=== PATIENT | male | born 1950 | race Caucasian/White ===

== ENCOUNTER 2017-12-14 09:16 | Emergency (ER) | payer SELFPAY ==
[~2017-12-14] VITALS: Ht 182.9 cm; Wt 92.5 kg
[2017-12-14] MEDS ORDERED: ASPI81CH PO (10:50)
[2017-12-14] MEDS ORDERED: LUBRICANT 0.5-015 ML RIGHTEYE (10:52)
[2017-12-14] MEDS ORDERED: GENTEAL TEARS 015 M1 RIGHTEYE (10:53)
[2017-12-14] MEDS ORDERED: ERYT1OIN BOTHEYES (10:55)
[2017-12-14] MEDS ORDERED: RETAINE HPMC 0.10 ML BOTHEYES (10:56)
[2017-12-14] MEDS ORDERED: LEVSOD100 PO (10:56)
[2017-12-14] MEDS ORDERED: METCAR500 PO (10:57)
[2017-12-14] MEDS ORDERED: HYDCHL25 PO (10:57)
[2017-12-14] MEDS ORDERED: CHOL10002 PO (10:58)
[2017-12-14] MEDS ORDERED: Viagra100 MG PO (10:58)
[2017-12-14] MEDS ORDERED: Fish Oil 10001000 MG PO (10:59)
[2017-12-14] MEDS ORDERED: ACIDOPHILUS1 EAC1 PO (11:00)
[2017-12-14] MEDS ORDERED: Polytrim Eye Dr10 ML RIGHTEYE (11:34)
== END 2017-12-14 11:50 | disposition home or self-care (01) ==
LOC: ER 09:16
DX: S05.01XA Injury of conjunctiva and corneal abrasion without foreign body, right eye, initial encounter (principal); W22.8XXA Striking against or struck by other objects, initial encounter; I10 Essential (primary) hypertension; Z79.899 Other long term (current) drug therapy; Z79.82 Long term (current) use of aspirin
CPT/HCPCS: 99284

== ENCOUNTER 2019-03-25 03:37 | Emergency (ER) | payer OTHER ==
[~2019-03-25] VITALS: Ht 182.9 cm; Wt 92.5 kg
[~2019-03-25 03:37] MED LIST: ACIDOPHILUS1 EAC1 PO; ASPI81CH PO; CHOL10002 PO; ERYT1OIN BOTHEYES; Fish Oil 10001000 MG PO; GENTEAL TEARS 015 M1 RIGHTEYE; HYDCHL25 PO; LEVSOD100 PO; LUBRICANT 0.5-015 ML RIGHTEYE; METCAR500 PO; Polytrim Eye Dr10 ML RIGHTEYE; RETAINE HPMC 0.10 ML BOTHEYES; Viagra100 MG PO
[2019-03-25] MEDS ORDERED: Crestor40 MG PO (04:12)
[2019-03-25] MEDS ORDERED: CLOP75 PO (04:12)
[2019-03-25] MEDS ORDERED: CEPH500 PO (06:30)
== END 2019-03-25 06:52 | disposition home or self-care (01) ==
LOC: ER 03:37
DX: S92.422B Displaced fracture of distal phalanx of left great toe, initial encounter for open fracture (principal); I10 Essential (primary) hypertension; E03.9 Hypothyroidism, unspecified; Z95.2 Presence of prosthetic heart valve; Z79.899 Other long term (current) drug therapy; Z79.01 Long term (current) use of anticoagulants; X58.XXXA Exposure to other specified factors, initial encounter
CPT/HCPCS: 12001; 73660; 99283-25; A9270-GY

== ENCOUNTER 2024-12-16 06:41 | Emergency (ER) | payer OTHER ==
[~2024-12-16] VITALS: Ht 182.9 cm; Wt 78.0 kg
[~2024-12-16 06:41] MED LIST changes: +CEPH500 PO; +CLOP75 PO; +Crestor40 MG PO; +DILT120 PO; +DOCU100 PO; +ERYT.5TO BOTHEYES; +LEVSOD150 PO; +METO25ER PO; +OMEP20ER PO; +Toprol Xl25 MG PO; +XARELTO20 MG PO
[2024-12-16 07:24] LABS: BASOPHILS ABSOLUTE AUTO 0.01 K/mm3 (0.00-0.23); BASOPHILS PERCENT AUTO 0 % (0-2); EOSINOPHILS ABSOLUTE AUTO 0.02 K/mm3 (0.00-0.68); EOSINOPHILS PERCENT AUTO 1 % (0-6); Hematocrit 38.1 % (37.0-53.0); Hemoglobin 12.9 g/dL (13.5-17.5); IMMATURE GRAN ABSOLUTE AUTO 0.00 K/mm3 (0.00-0.10); IMMATURE GRAN PERCENT AUTO 0 % (0-1); LYMPHOCYTES ABSOLUTE AUTO 1.49 K/mm3 (0.84-5.20); LYMPHOCYTES PERCENT AUTO 49 % (21-46); MONOCYTES ABSOLUTE AUTO 0.31 K/mm3 (0.16-1.47); MONOCYTES PERCENT AUTO 10 % (4-13); Mean Corpuscular HGB Conc 33.9 g/dL (31.5-36.5); Mean Corpuscular Volume 94 fL (80-100); NEUTROPHILS ABSOLUTE AUTO 1.24 K/mm3 (1.96-9.15); NEUTROPHILS PERCENT AUTO 40 % (41-73); NRBC ABSOLUTE 0.00 K/mm3 (0.00-0.02); NRBC Auto 0.0 /100 WBC (0.0-0.2); Platelet Count 100 K/mm3 (150-400); RDW Coefficient Variation 14.9 % (11.7-14.2); RDW Standard Deviation 51.3 fL (35.1-46.3)
[2024-12-16] MEDS ORDERED: JARDIANCE10 MG PO (07:40)
[2024-12-16 07:41] LABS: Alanine Aminotransfer (ALT/SGP 21.0 U/L (12-78); Albumin, Blood 3.4 g/dL (3.4-5.0); Albumin/Globulin Ratio 1.2 (0.8-1.8); Anion Gap 9.0 mmol/L (3-11); Aspartate Aminotrans (AST/SGOT 21.0 U/L (12-37); Bilirubin, Total 0.5 mg/dL (0.1-1.0); Blood Urea Nitrogen 22.0 mg/dL (8-24); CO2, Blood 23.0 mmol/L (21-32); Calcium, Blood 8.9 mg/dL (8.5-10.1); Chloride, Blood 112.0 mmol/L (98-108); Creatinine, Blood 0.7 mg/dL (0.60-1.20); Globulin, Blood 2.9 g/dL (2.2-4.0); Glucose, Blood 104.0 mg/dL (70-99); Potassium, Blood 3.4 mmol/L (3.5-5.5); Sodium, Blood 141.0 mmol/L (136-145); Total Protein, Blood 6.3 g/dL (6.4-8.2)
[2024-12-16 10:52] LABS: Thyroid Stimulating Hormone 0.015 uIU/mL (0.360-4.800)
[2024-12-16 11:38] VITALS: BP 141/63
== END 2024-12-16 13:35 | disposition home or self-care (01) ==
LOC: ER 06:41
PROVIDERS: Physician Assistant; Student in an Organized Health Care Education/Training Program
DX: R06.02 Shortness of breath (principal); R53.1 Weakness; R07.89 Other chest pain; I10 Essential (primary) hypertension; E78.5 Hyperlipidemia, unspecified; E03.9 Hypothyroidism, unspecified; Z79.899 Other long term (current) drug therapy; Z91.040 Latex allergy status; Z88.8 Allergy status to other drugs, medicaments and biological substances
CPT/HCPCS: 70450; 71045; 71260; 80053; 83735; 84439; 84443; 84481; 84484; 85025; 93005; 93010; 93246; 99285-25; A9270; Q9967